=== PATIENT | female | born 1985 | race Caucasian/White ===

== ENCOUNTER 2016-07-23 17:00 | Emergency (ER) ==
[2016-07-23 17:28] LABS: URINE CULTURE NEEDED? NO; URINE MICRO REVIEW NEEDED? NO; URINE SOURCE CLEAN CATCH
[2016-07-23 17:34] LABS: BILIRUBIN URINE NEGATIVE (NEGATIVE); BLOOD URINE NEGATIVE (NEGATIVE); COLOR STRAW; GLUCOSE URINE NEGATIVE (NEGATIVE); LEUKOCYTES URINE NEGATIVE (NEGATIVE); NITRITE URINE NEGATIVE (NEGATIVE); PH URINE 6.5; PROTEIN URINE NEGATIVE (NEGATIVE); SP GRAVITY URINE 1.002; TURBIDITY URINE CLEAR (CLEAR); UROBILINOGEN URINE NORMAL (NORMAL)
[2016-07-23 17:36] LABS: UR EPITHELIAL CELLS <10 /HPF (<10); URINE BACTERIA NEGATIVE /HPF; URINE RBC <10 /HPF (<10); URINE WBC <10 /HPF (<10)
[2016-07-23] MEDS ORDERED: DILAUDID IV ONE (17:37)
[2016-07-23] MEDS ORDERED: ZOFRAN IV ONE (17:38)
[2016-07-23] MEDS ORDERED: NS 1,000 ML IV ONE (17:38)
--- NOTE | 2016-07-23 18:14 | PROVIDER DOCUMENTATION ---
HPI-Abdominal Pain/GI Problem - General Chief Complaint: Abdominal Pain Stated Complaint: ABD/BACK PAIN/HZ OF PANCREATITIS Time Seen by Provider: 07/23/16 17:13 Source: patient Allergies/Adverse Reactions: Patient Allergies Allergy/AdvReac Type Severity Reaction Status Date / Time morphine Allergy Intermediate RASH Verified 07/23/16 18:57 vancomycin Allergy Intermediate RASH Verified 07/23/16 18:57 nalbuphine HCl * Allergy Unknown RASH Verified 07/23/16 18:57 [From Nubain] metoclopramide HCl * Allergy Unknown Verified 07/23/16 18:57 [From Reglan] codeine [Codeine] AdvReac Mild CHEST PAIN Verified 07/23/16 18:57 Home Medications: Home Medication List Medication Instructions Recorded Confirmed Last Taken Type Hydrocodone/Acetaminophen [[place] 7.5 mg PO BID PRN 05/26/13 07/23/16 07/23/16 16 :30 History 7.5-325 Tablet] Fluoxetine [Prozac] 20 mg PO HS 09/18/13 07/23/16 07/22/16 20:00 History Lorazepam [Ativan] 0.5 mg PO DAILY PRN 09/29/14 07/23/16 2 Days Ago History Bisacodyl [Dulcolax] 10 mg TX QHS #20 supp 07/23/16 Unknown Rx Na Phos,M-B/Na Phos,Di-Ba [Fleet 133 ml TX HS PRN PRN #3 enema 07/23/16 Unknown Rx Enema] Polyethylene Glycol 3350 [Miralax] 255 gm PO DAILY #1 powder 07/23/16 Unknown Rx - History of Present Illness-ABD Nature of Presenting Problems: 30 year old WF presents with c/o LUQ/epigastric pain for 2 days, getting worse with associated nausea/anorexia, subjective fever/chills. 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 pt reports she feels as if this is pancreatitis. pt reports her labs are always normal, but her CT scan will be abnormal. pt reports she has been taking norco 7 at home for her fibromylagia pain and they have not helped with the abdominal pain. Abdominal Pain Onset Location: reports: LUQ, epigastric Pain Radiation: reports: flank (left), shoulder (left), back (left) Quality of Pain: reports: sharp, stabbing Severity in ED: reports: moderate Onset/Duration: reports: 2 days ago Timing: reports: still present, constant, getting worse. denies: improving Activities at Onset: reports: none Modifying Factors: improves with: analgesics, palpation Associated Symptoms: reports: back/neck pain, fever/chills, loss of appetite, malaise, nausea. denies: genitourinary problems, headaches, heartburn, joint pain, shortness of breath, sensory/motor loss, pain with inspiration, swelling/ mass in abdomen, syncope, vomiting, weakness, trouble walking Last BM: this morning Dark Stools Present?: reports: none noticed. denies: maroon, black, tarry, bright red blood Rectal Bleeding: reports: none. denies: bleeding without stool, bright red blood on paper, blood mixed with stool, blood streaks on stool, bloody diarrhea # of Diarrhea Episodes: 0 Rectal Pain: reports: none # of Vomiting Episodes: 0 Emesis Description: reports: none Bruising or Bleeding Gums?: No Similar Symptoms Previously?: No Recently seen or treated by another doctor?: No Review of Systems - Adult - REVIEW OF SYSTEMS - ADULT Constitutional: reports: see HPI, chills, fever, fatique Eyes: reports: no symptoms reported. denies: discharge, blurred vision, double vision, redness Ears, Nose, Mouth & Throat: reports: no symptoms reported. denies: ear discharge, ear pain, nose pain, loose teeth, throat pain, throat swelling Cardiovascular: reports: no symptoms reported. denies: chest pain, palpitations , syncope Respiratory: reports: no symptoms reported. denies: chronic cough, cough, shortness of breath, wheezing Gastrointestinal: reports: see HPI, abdominal pain, nausea, poor appetite. denies: hematemesis, constipation, diarrhea, difficulty swallowing, frequent heartburn, rectal bleeding, vomiting Genitourinary: reports: no symptoms reported. denies: dysuria, hematuria, urgency Musculoskeletal: reports: no symptoms reported. denies: bone pain, joint pain, joint swelling, neck pain Integumentary: reports: no symptoms reported. denies: hives, itching, rash, skin sores/ulcer Neurological: reports: no symptoms reported. denies: ataxia, numbness, paresthesia, tremors Psychiatric: reports: no symptoms reported Endocrine: reports: no symptoms reported Hematologic/Lymphatic: reports: no symptoms reported Allergic/Immunologic: reports: no symptoms reported All Other Systems: Reviewed and Negative Past History - Adult - PAST MEDICAL HISTORY-ADULT Review of Records: reports: Old Records Reviewed, Nursing Assessment Review, Medications Reviewed, Social history reviewed & non-contributory. Major Childhood Illnesses: reports: denies history Cardiovascular: reports: denies history Respiratory: reports: asthma Gastrointestinal: reports: GERD, pancreatitis, other (chronic constipation) Obstetrical/Gynecological: reports: denies history Genitourinary: reports: denies history Musculoskeletal: reports: arthritis, chronic pain (receives pain mediactions at a pain clinic), fibromyalgia Neurological: reports: denies history Psychiatric: reports: anxiety, depression Endocrine/Immune: reports: Diabetes Other Conditions: reports: other (iron deficiency anemia) - PRIOR SURGERIES/PROCEDURES Surgical/Procedure History: reports: cholecystectomy, , bowel surgery, other (60%pancreas removed) - IMMUNIZATION STATUS Childhood Immunizations: See Nurse Assessment Flu Vaccine: See Nurse Assessment - FAMILY HISTORY Family History: reviewed, not pertinent - SOCIAL HISTORY Smoking: cigarettes, greater than 1 pack/day Provider spent 3-5 mins advising pt. on dangers of tobacco.: Discussed manners to quit use, and f/u contacts for add'l counseling. Substance Use: none/never Alcohol Use Frequency: never Physical Exam-General - PHYSICAL EXAM-ADULT Initial Vital Signs Reviewed: Yes - CONSTITUTIONAL General Appearance: appears well, alert, mild distress. negative: no apparent distress, moderate distress - EYES Eyes: pink conjunctivae. negative: conjuctival exudate, pale conjunctivae, sclera injected, scleral icterus, subconjunctival hemorrhage - HEAD, EARS, NOSE, MOUTH & THROAT HENMT: normocephalic/atraumatic, moist mucous membranes, normal ENT inspection - NECK Neck: non-tender, full range of motion, supple, normal inspection. negative: C- spine tenderness, limited range of motion, tender lateral, tender midline - RESPIRATORY Respiratory: chest non-tender, lungs clear, normal breath sounds, no pleuratic chest pain, no respiratory distress, no accessory muscle use. negative: respiratory distress, decreased breath sounds, accessory muscle use, crackles, rales, rhonchi, stridor, wheezing - CARDIOVASCULAR Cardiovascular: normal peripheral pulses, regular rate, rhythm, no edema, no gallop, no JVD, no murmur - CHEST (BREASTS) Chest/Breast: no tenderness - GASTROINTESTINAL (ABDOMEN) Abdominal Exam: normal bowel sounds, soft, no organomegaly, no pulsatile mass, tenderness (epigastric/LUQ). negative: non tender, abnormal bowel sounds, distended, guarding, rigid, rebound, hernia, mass, hepatomegaly, spleenomegaly, McBurney's point tenderness, Leslie's sign, obturator sign, psoas, Rovsing's sign - GENITOURINARY Female Genitalia/Pelvic Exam: deferred Rectal Exam: deferred Hemoccult Exam: deferred - LYMPHATIC Lymphatic: no adenopathy - MUSCULOSKELETAL Back Exam: normal inspection, no vertebral tenderness, CVA tenderness (left). negative: no CVA tenderness, decreased range of motion, swelling, vertebral tenderness Extremity: normal range of motion, non-tender, normal gait, normal inspection, no pedal edema, no calf tenderness, normal capillary refill. negative: deformity, erythema, inflammation Peripheral Pulses: radial (R): 3+, radial (L): 3+, dorsalis-pedis (R): 3+, dorsalis-pedis (L): 3+ - SKIN Integumentary: normal color, normal turgor, warm/dry - NEUROLOGIC Neurologic: grossly normal, no motor/sensory deficits. negative: focal weakness , motor weakness, sensory deficit - PSYCHIATRIC Psych/Mental Status: normal mood/affect, normal thought content, normal thought process, oriented x 3 Progress - PLAN OF CARE/RESULTS Progress/Plan/Lab Results: Laboratory Tests 07/23/16 07/23/16 07/23/16 17:17 17:17 19:08 WBC RBC Hgb Hct MCV MCH MCHC RDW Std Deviation Plt Count MPV Immature Gran % (Auto) Neut % (Auto) Lymph % (Auto) [place] % (Auto) Eos % (Auto) Baso % (Auto) Immature Gran # (Auto) Neut # (Auto) Lymph # (Auto) [place] # (Auto) Eos # (Auto) Baso # (Auto) Sodium 141 Potassium 3.7 Chloride 102 Carbon Dioxide 25 Anion Gap 14 BUN 11 Creatinine 0.5 Estimated GFR/1.73 m2 > 60 BUN/Creatinine Ratio 22 Glucose 94 Calculated Osmolality 280 Calcium 8.4 L Total Bilirubin 0.22 AST 22 ALT 35 Alkaline Phosphatase 46 Total Protein 6.7 Albumin 4.3 Globulin 2.4 Albumin/Globulin Ratio 1.8 Amylase 36 Lipase 25 Urine Source CLEAN CATCH Urine Color STRAW Urine Turbidity CLEAR Urine pH 6.5 Ur Specific [place] 1.002 Urine Protein NEGATIVE Ur Glucose (Stick) NEGATIVE Ur Ketones (Stick) NEGATIVE Urine Blood NEGATIVE Urine Nitrite NEGATIVE Urine Bilirubin NEGATIVE Urobilinogen Dipstick NORMAL Urine Leukocytes NEGATIVE Urine WBC (Auto) <10 Urine RBC (Auto) <10 U Epithel Cells (Auto) <10 Urine Bacteria (Auto) NEGATIVE Urine Test NEGATIVE 07/23/16 19:08 WBC 8.09 RBC 4.13 L Hgb 11.4 L Hct 35.2 L MCV 85.2 MCH 27.6 MCHC 32.4 L RDW Std Deviation 14.0 Plt Count 425 H MPV 10.8 H Immature Gran % (Auto) 0.0 Neut % (Auto) 63.0 Lymph % (Auto) 24.1 [place] % (Auto) 10.4 H Eos % (Auto) 2.1 Baso % (Auto) 0.4 Immature Gran # (Auto) 0.00 Neut # (Auto) 5.10 Lymph # (Auto) 1.95 [place] # (Auto) 0.84 H Eos # (Auto) 0.17 Baso # (Auto) 0.03 Sodium Potassium Chloride Carbon Dioxide Anion Gap BUN Creatinine Estimated GFR/1.73 m2 BUN/Creatinine Ratio Glucose Calculated Osmolality Calcium Total Bilirubin AST ALT Alkaline Phosphatase Total Protein Albumin Globulin Albumin/Globulin Ratio Amylase Lipase Urine Source Urine Color Urine Turbidity Urine pH Ur Specific [place] Urine Protein Ur Glucose (Stick) Ur Ketones (Stick) Urine Blood Urine Nitrite Urine Bilirubin Urobilinogen Dipstick Urine Leukocytes Urine WBC (Auto) Urine RBC (Auto) U Epithel Cells (Auto) Urine Bacteria (Auto) Urine Test Orders Category Date Time Status Orthostatic Vital Signs NOW Care 07/23/16 17:38 Active Saline Loc DIRECTED Care 07/23/16 17:11 Active NPO Diet 07/23/16 17:[address] ABD/PELVIS W/ IV CONT ONLY [CT] Stat Exams 07/23/16 17:39 Taken AMYLASE [CHEM] Stat Lab 07/23/16 19:08 Completed CBC WITH ELECTRONIC DIFF [HEME] Stat Lab 07/23/16 19:08 Completed COMPREHENSIVE METABOLIC PANEL [CHEM] Stat Lab 07/23/16 19:08 Completed LIPASE [CHEM] Stat Lab 07/23/16 19:08 Completed TEST-URINE [PREG] Stat Lab 07/23/16 17:17 Completed URINALYSIS W/POSS RFLX CULT [URINALYSIS] Stat Lab 07/23/16 17:17 Completed 0.9% Sodium Chloride Inj [Ns] 1,000 ml Med 07/23/16 17:38 Discontinued IV 999 mls/hr Hydromorphone [Dilaudid] Med 07/23/16 17:37 Discontinued 1 mg IV NOW ONE Ondansetron [Zofran] Med 07/23/16 17:38 Discontinued 4 mg IV NOW ONE Vital Signs - 24 hr 07/23/16 07/23/16 07/23/16 17:08 17:40 19:21 Temperature 98.6 F Pulse Rate 67 89 Pulse Rate [ 73 Sitting] Pulse Rate [ 84 Standing] Pulse Rate [ 85 Supine] Respiratory 18 20 Rate Blood Pressure 117/79 125/78 Blood Pressure 107/68 [Sitting] Blood Pressure 114/74 [Standing] Blood Pressure 112/76 [Supine] O2 Sat by Pulse 100 99 Oximetry 07/23/16 20:19 Temperature Pulse Rate 79 Pulse Rate [ Sitting] Pulse Rate [ Standing] Pulse Rate [ Supine] Respiratory 18 Rate Blood Pressure 108/71 Blood Pressure [Sitting] Blood Pressure [Standing] Blood Pressure [Supine] O2 Sat by Pulse 98 Oximetry Reviewed radiology, labs, H&P with Dr. Quezada, agrees with plan of care and treatment. - CT/MRI 1 CT Study: Abdomen, Pelvis Impression: Normal (no gallbladder, no spleen, no hydroneprosis, a portion of pancrease has been removed, no mass or pseudocyst. constipation, normal appendix , no abscess, 2cm right ovarian cyst. per Dr. Jain) Departure - Departure Time of Disposition Order: 21:10 DIAGNOSIS: Nausea Constipation Qualifiers: Constipation type: unspecified constipation type Qualified Code(s): K59.00 - Constipation, unspecified Abdominal pain Qualifiers: Abdominal location: left upper quadrant Qualified Code(s): R10.12 - Left upper quadrant pain Disposition: HOME 01 Certified Medical Emergency: Emergent Condition: Stable Additional Instructions: Follow up with your primary care doctor tomorrow as scheduled. Continue with all current medications. Start taking the miralax, suppositories and enemas. ED Follow Up Instructions: You have been treated by a care provider in the Emergency Department. These instructions are being provided to you so you can have an understanding of how to care for yourself upon discharge. Upon discharge from the Emergency Department, you are responsible for making arrangements for follow-up care by a physician of your choice. Take all prescribed medications as directed. Return to the Emergency Department immediately for any new or worsening symptoms. You may call the Physician Referral phone number at [phone] to obtain a list of Physicians who are taking new patients. Prescriptions: Bisacodyl [Dulcolax] 10 mg TX QHS #20 supp Na Phos,M-B/Na Phos,Di-Ba [Fleet Enema] 133 ml TX HS PRN PRN #3 enema PRN Reason: Constipation Polyethylene Glycol 3350 [Miralax] 255 gm PO DAILY #1 powder Referrals: Ion Perrin [Primary Care Provider] - Instructions: Constipation, Adult, [id number], Abdominal Pain, Adult, Easy-to -Read, Nausea, Adult, [id number] Attestation - Physician/ ADITYA Attestation Patient care was provided by Advanced Practice Provider:: Yes Advanced Practice Provider:: Nurys Mena Advanced Practice Provider documentation review:: The Mid-level provider documentation, treatment plan and medical decision making was reviewed by the physician who agrees with all treatment and medical decision making by the MLP.
[2016-07-23 19:20] LABS: MANUAL DIFF NEEDED? NO
[2016-07-23 19:28] LABS: BASO% 0.4 % (0.0-0.8); EOS# 0.17 X1000 (0.0-0.7); EOS% 2.1 % (0.0-10.0); HEMATOCRIT 35.2 % (37.0-47.0); HEMOGLOBIN 11.4 g/dL (12.0-16.0); LYMPH# 1.95 X1000 (1.2-3.4); LYMPH% 24.1 % (20.5-51.1); MCH 27.6 PG (27-31); MCHC 32.4 g/dL (33-37); MCV 85.2 FL (81-99); MONO# 0.84 X1000 (0.11-0.59); MONO% 10.4 % (1.7-9.3); MPV 10.8 FL (7.4-10.4); PLT 425 X1000 (130-400); RBC 4.13 XMIL (4.2-5.4)
[2016-07-23 19:40] LABS: AGAP 14; ALBUMIN 4.3 g/dL (3.5-5.0); ALKALINE PHOSPHATASE 46 U/L (32-104); AMYLASE 36 U/L (20-200); BUN 11 mg/dL (8-22); CALCIUM 8.4 mg/dL (8.8-10.2); CHLORIDE 102 mmol/L (98-107); COSMO 280; GOT 22 U/L (10-30); GPT 35 U/L (10-36); LIPASE 25 U/L (13-60); POTASSIUM 3.7 mmol/L (3.5-5.1); SODIUM 141 mmol/L (136-145); TCO2 25 mmol/L (25-35); TOTAL BILIRUBIN 0.22 mg/dL (0.20-1.00); TOTAL PROTEIN 6.7 g/dL (6.3-8.3)
[2016-07-23 20:19] VITALS: BP 108/71
--- NOTE | 2016-07-24 08:55 | Diag Imaging Result Document ---
PROCEDURE NAME: CT ABD/PELVIS W/ IV CONT ONLY - 07/23/2016 CT ABDOMEN AND PELVIS WITH INTRAVENOUS CONTRAST. DOSE REDUCTION PROTOCOL. COMPARISON: 07/02/2013. FINDINGS: The lower lungs are clear. No pleural effusions. The spleen and gallbladder have been removed. The majority of the pancreas has also been removed. The pancreatic head is normal. No pseudocyst. Normal adrenal glands. Normal enhancement of the kidneys. No hydronephrosis. Normal aorta. There is a 7-8 mm nonspecific hypodense nodule in the right lobe of the liver with an even smaller area just beneath the dome of the diaphragm. These are not definitely seen on the prior noncontrasted exam although they may simply represent cysts. There is stool throughout the colon. The bowel loops are not dilated. Normal appendix. No abscess. No free air. The urinary bladder is moderately distended and appears normal. Normal uterus. There are multiple bilateral small ovarian cysts in addition to a 2.2 cm right ovarian cyst. Trace fluid in the pelvis. IMPRESSION: 1. Cholecystectomy, splenectomy, and partial pancreatectomy. 2. Constipation. 3. Ovarian cysts with trace fluid in the pelvis. 4. Tiny nonspecific hypodense hepatic lesions which may simply be cysts. A preliminary report was given at 8:48 p.m..
== END 2016-07-23 21:15 | disposition home or self-care (01) ==
LOC: ED 17:00
DX: R10.12 Left upper quadrant pain (principal); K59.00 Constipation, unspecified; R11.0 Nausea; R10.32 Left lower quadrant pain; R10.13 Epigastric pain; R10.9 Unspecified abdominal pain; M25.512 Pain in left shoulder; M54.9 Dorsalgia, unspecified; R53.81 Other malaise; R50.9 Fever, unspecified; R53.83 Other fatigue; K21.9 Gastro-esophageal reflux disease without esophagitis; M19.90 Unspecified osteoarthritis, unspecified site; G89.29 Other chronic pain; M79.7 Fibromyalgia; E11.9 Type 2 diabetes mellitus without complications; F41.9 Anxiety disorder, unspecified; F32.9 Major depressive disorder, single episode, unspecified; F17.210 Nicotine dependence, cigarettes, uncomplicated; Z71.6 Tobacco abuse counseling; N83.201 Unspecified ovarian cyst, right side; Z79.899 Other long term (current) drug therapy
CPT/HCPCS: 74177; 80053; 81001; 81025; 82150; 83690; 85025; J1170; J2405; J7030; Q9966; Q9967